=== PATIENT | female | born 1980 | race Caucasian/White ===

== ENCOUNTER 2024-09-29 16:21 | Inpatient (IN) | payer OTHER ==
[~2024-09-29] VITALS: Ht 170.2 cm; Wt 56.7 kg
--- NOTE | 2024-09-29 16:36 | Physician Documentation ---
History of Present Illness ~ Chief Complaint: Vomiting Stated Complaint: VOMITTING Time Seen by MD: 16:28 OK to notify your PCP?: Yes Source: patient, RN/MD, RN notes reviewed, old records Mode of Arrival: EMS Exam Limitations: no limitations HPI 43-year-old female patient from [place] was brought to the emergency room by ambulance from the hotel in [facility] for vomiting and some streaking of blood in the vomitus after consuming large amount of vodka. Patient was shaky and anxious. About 1-1/2 weeks ago the patient has a same episode and extensive workup including CT scan of the abdomen pelvis was done and she was told that it is probably gastritis/esophagitis. Patient also admit that she use cannabis occasionally and the last time she was about a week ago. No known allergies. Medication Reconciliation Allergies: Coded Allergies: No Known Allergies (Unverified , 09/29/24) Past Medical History Other Past Medical History: Unknown Additional Comment Unknown Review of Systems ROS As stated above in the HPI, otherwise all systems are reviewed and negative. Physical Exam Vital Signs: RN Vital Signs have been reviewed: Yes, Heart Rate: 117, Respiratory Rate: 27, BP: 167/100, Pulse Oximetry: 98, Weight: 56.700 Oxygen Flow Rate: 0 Physical Exam Reviewed vital signs and except for tachycardia and slightly elevated blood pressure all within normal range. Const: Patient is not in acute cardiopulmonary distress but shaky. Obviously intoxicated. Does not look toxic. Head: Atraumatic Eyes: Normal Conjunctiva ENT: Normal External Ears, Nose and Mouth. Moist mucous membranes Neck: Full range of motion. No meningismus Resp: Clear to auscultation bilaterally. Normal work of breathing Cardio: Regular rate and rhythm, no murmurs. Skin well perfused, heart rate 112/minute Abd: Soft, epigastric tenderness, non-distended. Normal bowel sounds. No rebound or guarding Skin: No petechiae or rashes. Warm and dry Back: No midline or flank tenderness Ext: No cyanosis, or edema Neuro: Awake and alert Psych: Normal Mood and Affect Progress Results/Orders Reviewed/noted all lab results: Yes Results/Orders Orders - DELMY FINNEGAN MD Electrocardiogram (09/29/24 16:28) Culture Blood (09/29/24 17:54) Page Hospitalist (09/29/24 17:58) Completed Orders - DELMY FINNEGAN MD Cbc/Diff (09/29/24 16:28) Lipase (09/29/24 16:28) Ethanol (09/29/24 16:28) Hcg, Ur Ql (09/29/24 16:28) Type And Screen (09/29/24 16:28) Electrocardiogram (09/29/24 16:28) Drug Screen, Urine (09/29/24 16:28) BMP (09/29/24 16:28) Hs Troponin I W Calculations (09/29/24 16:28) Normal Saline 1000ml (Sodium Chloride 10 (09/29/24 16:30) Diphenhydramine Inj (Benadryl Inj.) (09/29/24 16:30) Metoclopramide Inj (Reglan Inj) (09/29/24 16:30) Lorazepam Inj (Ativan Inj) (09/29/24 16:30) Lidocaine 2% Viscous (Xylocaine 2% Visco (09/29/24 17:10) Mag & Alum Hydrox/Simeth Susp (Maalox Or (09/29/24 17:10) Dicyclomine 10mg/5ml Oral Maryjane. (Dicyclom (09/29/24 17:10) Mag & Alum Hydrox/Simeth Susp (Maalox Or (09/29/24 17:35) Lidocaine 2% Viscous (Xylocaine 2% Visco (09/29/24 17:35) Normal Saline 1000ml (Sodium Chloride 10 (09/29/24 17:55) LA (09/29/24 17:54) Ceftriaxone/S6n-[id number] 1gm (Rocephin 1 (09/29/24 17:55) Mag & Alum Hydrox/Simeth Susp (Maalox Or (09/29/24 18:15) Ua W/Microscopic, Cult If Ind (09/29/24 18:10) CK (09/29/24 17:01) Liver Panel (09/29/24 17:01) MG (09/29/24 17:01) Myoglobin (09/29/24 17:01) Lactic,2hr (09/29/24 20:18) Hgb A1c (09/29/24 17:01) PBNP (09/29/24 17:01) PHOS (09/29/24 17:01) Laboratory Tests Test 09/29/24 17:01 09/29/24 18:10 09/29/24 18:35 09/29/24 21:20 White Blood Count 22.4 H Red Blood Count 4.40 Hemoglobin 14.9 Hematocrit 45.4 H Mean Corpuscular Volume 103.1 H Mean Corpuscular Hemoglobin 33.9 H Mean Corpuscular Hemoglobin Concent 32.8 L Red Cell Distribution Width 15.5 H Platelet Count 708 H Mean Platelet Volume 7.7 Neutrophils (%) (Auto) 89.3 H Lymphocytes (%) (Auto) 6.8 L Monocytes (%) (Auto) 3.1 Eosinophils (%) (Auto) 0 Basophils (%) (Auto) 0.8 Neutrophils # (Auto) 20.0 H Lymphocytes # (Auto) 1.5 Monocytes # (Auto) 0.7 Eosinophils # (Auto) 0.0 Basophils # (Auto) 0.2 CBC Comment Prothrombin Time 9.3 INR International Normalized Ratio 0.9 Activated Partial Thromboplast Time 25 Coagulation Comments Sodium Level 131 L Potassium Level 2.6 *L Chloride Level 81 L Carbon Dioxide Level 8.2 *L Anion Gap 42 H Blood Urea Nitrogen 8 Creatinine 1.16 H Estimated GFR/1.73 m2 51 BUN/Creatinine Ratio 6.9 L Glucose Level 78 Hemoglobin A1c 5.1 Calcium Level 9.0 Phosphorus Level 6.2 H Magnesium Level 1.8 Total Bilirubin 0.5 Direct Bilirubin 0.1 Aspartate Amino Transf (AST/SGOT) 209 H Alanine Aminotransferase (ALT/SGPT) 127 H Alkaline Phosphatase 132 H Total Creatine Kinase 74 Myoglobin 23.0 Troponin I High Sensitivity 5 10 Pro-B-Type Natriuretic Peptide 155 H Total Protein 8.3 H Albumin 3.9 Globulin 4.4 H Albumin/Globulin Ratio 0.9 L Lipase 97 H Chemistry Comments Ethyl Alcohol Level 117 H Urine Specimen Description Cln catch midstream Urine Color Yellow Urine Clarity Clear Urine pH 6.0 Urine Specific Josephine >=1.030 Urine Protein Trace Urine Glucose (UA) Negative Urine Ketones >=80 Urine Occult Blood Negative Urine Nitrite Negative Urine Bilirubin Negative Urine Urobilinogen 0.2 Urine Leukocyte Esterase Negative Urine RBC None seen Urine WBC 0-4 Urine Squamous Epithelial Cells Moderate Urine Bacteria 1+ Urine Culture Indicated Not ind Volume Urine Centrifuged 10 ml Urine HCG, Qualitative Negative Urine Comment Urine Opiates Screen Negative Urine Methadone Screen Negative Urine Fentanyl Screen Negative Urine Barbiturates Screen Negative Urine Phencyclidine Screen Negative Urine Amphetamines Screen Negative Urine Benzodiazepines Screen Negative Urine Cocaine Screen Negative Urine Cannabinoids Screen Positive Drug Screen Comment Lactic Acid Level 6.4 *H 1.1 Troponin I High Sens Percent Delta 100 Troponin I Hi Sens Absolute Change 5 Test 09/29/24 22:14 White Blood Count 15.9 H Red Blood Count 3.67 L Hemoglobin 12.5 Hematocrit 37.5 Mean Corpuscular Volume 102.0 H Mean Corpuscular Hemoglobin 33.9 H Mean Corpuscular Hemoglobin Concent 33.3 Red Cell Distribution Width 15.3 H Platelet Count 503 H Mean Platelet Volume 7.5 Neutrophils (%) (Auto) 85.4 H Lymphocytes (%) (Auto) 8.8 L Monocytes (%) (Auto) 5.3 Eosinophils (%) (Auto) 0 Basophils (%) (Auto) 0.5 Neutrophils # (Auto) 13.6 H Lymphocytes # (Auto) 1.4 Monocytes # (Auto) 0.8 Eosinophils # (Auto) 0.0 Basophils # (Auto) 0.1 CBC Comment Sodium Level 132 L Potassium Level 2.8 *L Chloride Level 89 L Carbon Dioxide Level 12.7 *L Anion Gap 30 H Blood Urea Nitrogen 6 L Creatinine 0.88 Estimated GFR/1.73 m2 70 BUN/Creatinine Ratio 6.8 L Glucose Level 73 Calcium Level 7.0 #L Albumin 2.9 L Chemistry Comments Microbiology Date/Time Source Procedure Growth Status 09/29/24 19:05 Blood Iv Draw Blood Culture - Preliminary NO GROWTH AFTER 4 DAYS Resulted Re-Evaluation Re-Evaluation : Re-Evaluation: Improved Progress This patient was signed out to me at 6:00 p.m. to admit the patient to the hospitalist service. Patient is tachycardic with critical laboratory findings. Patient has received under 3 L of fluids in and outs are 3 L in 200 cc out. She is complaining of abdominal pain I gave her Dilaudid. She has pancreatitis slightly elevated levels of lipase. Her electrolytes are severely abnormal her QTC is over 500 and prolonged. He has low potassium low magnesium. She is an alcoholic has been vomiting and has alcoholic ketoacidosis. CAT scan has been ordered fluids have been provided electrolytes are emergently given. She was started on antibiotics because her white count is 22. The hospitalist was then consulted she is not in ICU player at this time but does have some critical findings. student affairs dean interpretation shows sinus tachycardia heart rate 120s, abnormal, my interpretation. Pulse oximetry monitor interpretation shows normal oxygenation at 98% room air, normal, my interpretation. EKG/XRAY/CT/US/VASC/MRI EKG : Intepreting Monitor?: Yes Additional Comment [facility] Test Date: 2024-09-29 Test Time: 16:36:22 Pat Name: BALDO MORA Department: [facility]- Patient ID: [facility]-[id number] Room: Gender: F Forensic Document Examiner: : 1980 Requested By: DELMY FINNEGAN Order Number: [id number] Reading MD: Dr. Mario Bhatia Measurements Intervals [place] Rate: 119 P: 78 MT: 123 QRS: -16 QRSD: 86 T: -3 QT: 356 QTc: 501 Interpretive Statements Sinus tachycardia Borderline left axis deviation Anterior infarct, old Nonspecific T abnormalities, inferior leads Electronically Signed On 09-29-2024 18:22:[address] Mario Bhatia Please click the below link to view image of tracing. EKG Date and Time:09/29/24 1636 Electronically Signed by: MARIO BHATIA MD Date and Time: 09/29/24 182 Chest X-Ray : Additional Comments Procedure: DI CHEST,SINGLE VIEW 09/29/2024 08:25 PM Indication: CHEST PAIN Comparison: None TECHNIQUE: DI CHEST,SINGLE VIEW FINDINGS/IMPRESSION: The lungs are clear. The cardiomediastinal silhouette is unremarkable. No pleural effusion or pneumothorax. No acute osseous abnormality. Electronically Signed by:RAN MA MD Date & Time: 09/29/242057 Dictated by: RAN MA MD Dictation date and time: 09/29/242057 CT : Impression Exam: CT CT ABDOMEN PELVIS W/ IV CONTRAST History: ABD PAIN Comparison Study: None TECHNIQUE: A digital marble coper image was obtained. During the uneventful, intravenous administration of contrast material, multislice data acquisition was obtained through the abdomen and pelvis. The data set was subsequently reconstructed into multiplanar reformats. RADIATION DOSE: DLP 496.25 mGy.cm; CTDI vol 9.86 mGy. Findings: Liver: Hepatomegaly and hepatic steatosis. Spleen: Unremarkable. Pancreas: Unremarkable. Gallbladder: Unremarkable. Adrenals: Unremarkable Kidneys: Unremarkable. Pelvic Viscera: Status post hysterectomy. Vasculature: Unremarkable. Retroperitoneum: Unremarkable. Bowel: No bowel obstruction. There is submucosal fat deposition most pronounced within the ascending colon suggesting chronic inflammation. No CT evidence of appendicitis. Fluid filled regions of small bowel with wall thickening and hyperemia. Circumferential wall thickening of the distal esophagus. Musculoskeletal: Age-indeterminate mild compression of the superior endplate of L1. No osseous retropulsion. Soft tissues: Unremarkable. Lungs: Unremarkable. Impression: 1. Nonspecific fluid-filled regions of small bowel with wall thickening and hyperemia, possibly referable to an enteritis in the appropriate clinical setting. 2. Hepatomegaly and hepatic steatosis. 3. Wall thickening of the distal esophagus, further clinical correlation is suggested and nonemergent endoscopy may be beneficial if clinically indicated. 4. Additional findings as detailed. Electronically Signed by:RAN MA MD Date & Time: 09/29/242132 Medical Decision Making Additional info obtained from: old records Findings During the physical examination, the findings suggestive of acute life- threatening condition such as JVD, tracheal deviation, acidotic breathing, noisy stridorous breath sounds, pulses paradoxus, muffled heart sounds, unequal breath sounds, abdominal rigidity and rebound tenderness, focal neurological deficits, cool clammy skin, severe hypotension, severe tachycardia or bradycardia are absent. Patient is obviously anxious and intoxicated. Hemodynamics are stable. CBC showed WBC 22.4 H and H14.9 and 45.4 and platelets 708. I think leukocytosis is probably from repeated vomiting. However we will rechecked. CMP came back and it showed metabolic acidosis and hypokalemia .ETOH is 117. Patient will be admitted for hydration and electrolytes replacement. Differential Dx:Considerations: Intoxication - ETOH, Intoxication - other drug, Sub. Abuse -continuous, Sub. Abuse-intermittent, Dehydration, Pancreatitis, Other Departure Disposition: ADMITTED INPATIENT Admitted to Inpatient Unit: to hospitalist Admission Level of Care: PCU with Tele Impression: Primary Impression: Acute metabolic acidosis Additional Impressions: Alcoholic ketoacidosis Pancreatitis Qualified Codes: K85.20 - Alcohol induced acute pancreatitis without necrosis or infection Hypokalemia Condition: Critical Referrals: NO PRIMARY CARE PROVIDER (PCP) Education Educated: Patient Educated regarding: diagnosis Critical Care Note Total Time (mins): 30 Critical Care Note The very real possibility of a deterioration of this patient's condition required the highest level of my preparedness for sudden, emergent intervention. I provided critical care services, which included medication orders, frequent reevaluations of the patient's condition and response to treatment, ordering and reviewing test results, and discussing the case with various consultants. Excludes time spent performing separately billable procedures. The critical care time associated with the care of the patient was. 30 minutes Additional Comment Additional Comment Patient was seen by the morning physician. Patient came in with alcoholic ketoacidosis. Patient has a leukocytosis electrolyte abnormalities was given potassium as well as magnesium supplementation. Borderline pancreatitis as well patient was admitted to the hospitalist service for further workup and care. Signature Scribe Signature: None Scribed for Mario Bhatia MD by Wicho Edouard . 09/29/24 22:49 (Progress) Attestation: The note accurately reflects work and decisions made by me.Mario Bhatia MD 09/29 20:17 My dictation DELMY FINNEGAN MD Sep 29, 2024 16:36 MARIO BHATIA MD Sep 29, 2024 19:52 WICHO OROZCO Sep 29, 2024 22:49
--- NOTE | 2024-09-29 16:38 | ELECTROCARDIOGRAPH REPORT ---
[facility] Test Date: 2024-09-29 Test Time: 16:36:22 Pat Name: BALDO MORA Department: [facility]- Patient ID: [facility]-[id number] Room: Gender: F Tank Riveter: : 1980 Requested By: DELMY FINNEGAN Order Number: [id number] Reading MD: Dr. Mario Bhatia Measurements Intervals [place] Rate: 119 P: 78 [place]: 123 QRS: -16 QRSD: 86 T: -3 QT: 356 QTc: 501 Interpretive Statements Sinus tachycardia Borderline left axis deviation Anterior infarct, old Nonspecific T abnormalities, inferior leads Electronically Signed On 09-29-2024 18:22:[address] Mario Bhatia Please click the below link to view image of tracing.
[2024-09-29] MEDS: normal saline 1000ML IV soln IV ONE ×2 (17:00→18:35)
[2024-09-29] MEDS: LORazepam 2 mg/ml vial IV ONE ×2 (17:00→21:35)
[2024-09-29] MEDS: diphenhydrAMINE 50 mg/ml inj IV ONE (17:01)
[2024-09-29] MEDS: metoclopramide 5 mg/ml inj IV ONE (17:05)
[2024-09-29] MEDS: dicyclomine 10mg/5ml oral solution 5ml UD bottle PO ONE (17:10)
[2024-09-29 17:14] LABS: BASOPHILS # (AUTO) 0.2 X10'3 (0-0.2); BASOPHILS % (AUTO) 0.8 % (0-1); EOSINOPHILS % (AUTO) 0 % (0-6); HEMATOCRIT 45.4 % (35.0-45.0); HEMOGLOBIN 14.9 g/dl (12.0-16.0); LYMPHOCYTES # (AUTO) 1.5 X10'3 (1.1-4.8); LYMPHOCYTES % (AUTO) 6.8 % (21-51); MEAN CORPUSCULAR HEMOGLOBIN 33.9 PG (27.0-31.0); MEAN CORPUSCULAR HGB CONC 32.8 g/dL (33.0-36.5); MEAN CORPUSCULAR VOLUME 103.1 FL (78-98); MEAN PLATELET VOLUME 7.7 FL (7.4-10.4); MONOCYTES # (AUTO) 0.7 X10'3 (0-0.9); MONOCYTES % (AUTO) 3.1 % (2-12); NEUTROPHILS % (AUTO) 89.3 % (42-75); PLATELET COUNT 708 X10'3 (140-440); RED CELL DISTRIBUTION WIDTH 15.5 % (11.5-14.5); WHITE BLOOD COUNT 22.4 X10'3 (4.5-11.0)
[2024-09-29 17:27] LABS: ALBUMIN 3.9 G/DL (3.4-5.0); ANION GAP 42 (8-16); BLOOD UREA NITROGEN 8 MG/DL (7-18); BUN/CREATININE RATIO 6.9 (10.0-20.0); CHLORIDE 81 MMOL/L (99-107); CREATININE 1.16 MG/DL (0.40-0.90); ETHANOL 117 MG/DL (<10); GLUCOSE 78 MG/DL (70-104); LIPASE 97 U/L (16-77); SODIUM 131 MMOL/L (135-145); eCRCL 55 ML/MIN; eGFR 51 ML/MIN
[2024-09-29] MEDS: mag hydrox/Alum hydrox/simeth 30ml oral suspension PO ONE ×2 (17:33→17:44)
[2024-09-29] MEDS: LIDOcaine 2% Viscous 15ml cup TP ONE ×2 (17:33→17:44)
[2024-09-29 17:52] LABS: POTASSIUM 2.6 MMOL/L (3.5-5.1); TOTAL CARBON DIOXIDE 8.2 MMOL/L (24-32)
[2024-09-29] MEDS ORDERED: diphenhydrAMINE 25 MG/10 ML UD oral solution PO ONE (17:55)
[2024-09-29] MEDS ORDERED: mag & alum hydrox/simeth susp 40 ML, diphenhydrAMINE oral solution 100 MG, LIDOcaine 2%... PO ONE (18:10)
[2024-09-29] MEDS: CefTRIAXone/D5W-Rocephin 1gm 50 ML IV ONE (18:35)
[2024-09-29 18:56] LABS: URINE HCG NEGATIVE (NEG)
[2024-09-29] MEDS: mag & alum hydrox/simeth susp 40 ML, diphenhydrAMINE oral solution 100 MG, LIDOcaine 2%... PO PRN (19:01)
[2024-09-29 19:02] LABS: BILIRUBIN,URINE NEGATIVE (Neg); CLARITY,URINE CLEAR (Clear); COLOR,URINE YELLOW (Yellow); GLUCOSE, URINE NEGATIVE (Neg); KETONES,URINE >=80 mg/dl (Neg); LEUKOCYTE ESTERASE ,URINE NEGATIVE (Neg); NITRITES, URINE NEGATIVE (Neg); OCCULT BLOOD,URINE NEGATIVE (Neg); PROTEIN,URINE TRACE mg/dl (Neg); UROBILINOGEN,URINE 0.2 E.U/dL (0.2-1.0)
[2024-09-29 19:03] LABS: UA COLLECTION TYPE CLN CATCH MIDSTREAM
[2024-09-29 19:12] LABS: BACTERIA,URINE 1+ /HPF (Neg); RBC,URINE NONE SEEN /HPF (0-2); SQUAMOUS EPITHELIAL CELL,UR MODERATE /LPF (FEW); WBC,URINE 0-4 /HPF (0-4)
[2024-09-29 19:19] LABS: URINE AMPHETAMINE SCREEN NEGATIVE (Neg); URINE BARBITUATE SCREEN NEGATIVE (Neg); URINE BENZODIAZEPINES SCREEN NEGATIVE (Neg); URINE CANNABINOID SCREEN POSITIVE (Neg); URINE COCAINE SCREEN NEGATIVE (Neg); URINE METHADONE SCREEN NEGATIVE (Neg); URINE OPIATE SCREEN NEGATIVE (Neg); URINE PHENCYCLIDINE SCREEN NEGATIVE (Neg)
[2024-09-29] MEDS: HYDROmorphone 1 mg/ml syringe IV ONE (19:53)
[2024-09-29 20:06] LABS: ALANINE AMINOTRANSFERASE 127 U/L (12-78); ALBUMIN/GLOBULIN RATIO 0.9 (1.1-1.5); ALKALINE PHOSPHATASE 132 IU/L (46-116); ASPARTATE AMINO TRANSFERASE 209 U/L (10-37); BILIRUBIN,DIRECT 0.1 MG/DL (0-0.3); BILIRUBIN,TOTAL 0.5 MG/DL (0.1-1.0); CREATINE KINASE 74 U/L (26-192); MAGNESIUM 1.8 MG/DL (1.5-2.4); TOTAL PROTEIN 8.3 G/DL (6.4-8.2)
[2024-09-29] MEDS: magnesium sulf-water 2g/50mL 50 ML IV ONE (20:09)
[2024-09-29] MEDS: potassium CL 10mEq/100ml bag 100 ML IV ONE (20:10)
[2024-09-29] MEDS ORDERED: iohexol 300mg/ml 100ml inj. ONE (20:11)
[2024-09-29] MEDS: potassium Cl 20 mEq SR tablet PO ONE (20:31)
[2024-09-29] MEDS: ondansetron/PF 4mg/2ml inj IV ONE (20:48)
[2024-09-29] MEDS: HYDROmorphone inj. 0.5 MG/0.5 ML DISP.SYRIN IV ONE (20:48)
[2024-09-29 20:58] LABS: APTT 25 SECONDS (22-32); PROTHROMBIN TIME 9.3 SECONDS (9.0-12.0)
[2024-09-29 20:59] LABS: INR 0.9 INR
--- NOTE | 2024-09-29 21:01 | RADIOLOGY REPORT ---
Procedure: DI CHEST,SINGLE VIEW 09/29/2024 08:25 PM Indication: CHEST PAIN Comparison: None TECHNIQUE: DI CHEST,SINGLE VIEW FINDINGS/IMPRESSION: The lungs are clear. The cardiomediastinal silhouette is unremarkable. No pleural effusion or pneumo thorax. No acute osseous abnormality.
[2024-09-29] MEDS: piperacillin/tazo 3.375gm/50ml 50 ML IV ONE (21:33)
--- NOTE | 2024-09-29 21:36 | RADIOLOGY REPORT ---
Exam: CT CT ABDOMEN PELVIS W/ IV CONTRAST History: ABD PAIN Comparison Study: None TECHNIQUE: A digital transmission supervisor image was obtained. During the uneventful, intravenous administration of c ontrast material, multislice data acquisition was obtained through the abdomen and pelvis. The data s et was subsequently reconstructed into multiplanar reformats. RADIATION DOSE: DLP 496.25 mGy.cm; CTDI vol 9.86 mGy. Findings: Liver: Hepatomegaly and hepatic steatosis. Spleen: Unremarkable. Pancreas: Unremarkable. Gallbladder: Unremarkable. Adrenals: Unremarkable Kidneys: Unremarkable. Pelvic Viscera: Status post hysterectomy. Vasculature: Unremarkable. Retroperitoneum: Unremarkable. Bowel: No bowel obstruction. There is submucosal fat deposition most pronounced within the ascending colon suggesting chronic inflammation. No CT evidence of appendicitis. Fluid filled regions of small bowel with wall thickening and hyperemia. Circumferential wall thickening of the distal esophagus. Musculoskeletal: Age-indeterminate mild compression of the superior endplate of L1. No osseous retrop ulsion. Soft tissues: Unremarkable. Lungs: Unremarkable. Impression: 1. Nonspecific fluid-filled regions of small bowel with wall thickening and hyperemia, possibly refer able to an enteritis in the appropriate clinical setting. 2. Hepatomegaly and hepatic steatosis. 3. Wall thickening of the distal esophagus, further clinical correlation is suggested and nonemergent endoscopy may be beneficial if clinically indicated. 4. Additional findings as detailed.
[2024-09-29] MEDS: dextrose 5%-1/2 normal saline 1,000 ML IV ONE (22:10)
[2024-09-29] MEDS: nicotine 21mg patch - 24 hr TD ONE (22:16)
[2024-09-29 22:43] LABS: BASOPHILS # (AUTO) 0.1 X10'3 (0-0.2); BASOPHILS % (AUTO) 0.5 % (0-1); EOSINOPHILS % (AUTO) 0 % (0-6); HEMATOCRIT 37.5 % (35.0-45.0); HEMOGLOBIN 12.5 g/dl (12.0-16.0); LYMPHOCYTES # (AUTO) 1.4 X10'3 (1.1-4.8); LYMPHOCYTES % (AUTO) 8.8 % (21-51); MEAN CORPUSCULAR HEMOGLOBIN 33.9 PG (27.0-31.0); MEAN CORPUSCULAR HGB CONC 33.3 g/dL (33.0-36.5); MEAN PLATELET VOLUME 7.5 FL (7.4-10.4); MONOCYTES # (AUTO) 0.8 X10'3 (0-0.9); MONOCYTES % (AUTO) 5.3 % (2-12); NEUTROPHILS # (AUTO) 13.6 X10'3 (1.8-7.7); NEUTROPHILS % (AUTO) 85.4 % (42-75); PLATELET COUNT 503 X10'3 (140-440); RED BLOOD COUNT 3.67 X10'6 (4.20-5.60); RED CELL DISTRIBUTION WIDTH 15.3 % (11.5-14.5); WHITE BLOOD COUNT 15.9 X10'3 (4.5-11.0)
[2024-09-29 22:55] LABS: ALBUMIN 2.9 G/DL (3.4-5.0); ANION GAP 30 (8-16); BLOOD UREA NITROGEN 6 MG/DL (7-18); BUN/CREATININE RATIO 6.8 (10.0-20.0); CHLORIDE 89 MMOL/L (99-107); CREATININE 0.88 MG/DL (0.40-0.90); GLUCOSE 73 MG/DL (70-104); SODIUM 132 MMOL/L (135-145); eCRCL 73 ML/MIN; eGFR 70 ML/MIN
[2024-09-29 23:05] LABS: POTASSIUM 2.8 MMOL/L (3.5-5.1)
[2024-09-29] MEDS ORDERED: magnesium sulf-water 2g/50mL 50 ML IV PRN (23:05)
[2024-09-29] MEDS ORDERED: potassium Cl 20 mEq SR tablet PO PRN ×2 (23:05)
[2024-09-29] MEDS ORDERED: HYDROmorphone/PF 0.2 MG/ML SYRINGE IV PRN (23:05)
[2024-09-29] MEDS ORDERED: magnesium hydroxide 30ml (MOM) UD suspension PO PRN (23:05)
[2024-09-29] MEDS ORDERED: magnesium Cl slow-release 64mg tablet PO PRN (23:05)
[2024-09-29] MEDS ORDERED: mag hydrox/Alum hydrox/simeth 30ml oral suspension PO PRN (23:05)
[2024-09-29] MEDS ORDERED: acetaminophen 325mg tablet PO PRN ×2 (23:05)
[2024-09-29] MEDS ORDERED: magnesium sulf-water 4G/100mL 100 ML IV PRN (23:05)
[2024-09-29 23:06] LABS: TOTAL CARBON DIOXIDE 12.7 MMOL/L (24-32)
[2024-09-29] MEDS ORDERED: haloperidol 5mg tablet PO PRN (23:15)
[2024-09-29] MEDS ORDERED: haloperidol lactate 5mg/ml inj IM PRN (23:15)
--- NOTE | 2024-09-29 23:21 | HISTORY AND PHYSICAL-Residence ---
History & Physical Providers to CC Resident Creating Document: KENDAL HERNANDEZ RES ~ History of Present Illness Reason for Admit\Complaint: INTRACTABLE ABDOMINAL PAIN AND VOMITING History of Present Illness 43-year-old female patient from [place] with chronic alcohol use was brought to the emergency room by ambulance from the hotel in [facility] for vomiting and abdominal pain.. Endorses intractable vomiting for more than 40 episodes from morning 40 a.m. after drinking a one bottle of vodka, associated with tr blood. Endorses abdominal pain from morning, sharp, severe, rated 10/10, more over the epigastric region then other regions of abdomen, rated 10/10, radiating to back. She endorses shaky and anxious. About 1-1/2 weeks ago the patient has a same episode and extensive workup including CT scan of the abdomen pelvis was done and she was told that it is probably gastritis/esophagitis. Patient also admit that she use cannabis occasionally and the last time she was about a week ago. She endorses melena for the past 2-3 days. She has been drinking the alcohol for the past quite a week. She denied chest pain, shortness of breath, palpitations, decreased urine output, constipation, diarrhea, swelling of legs, Discussed code status with the patient that patient wants to be in full code Allergies: Coded Allergies: No Known Allergies (Unverified , 09/29/24) Past Medical History Past Medical History Chronic alcohol use disorder Past Surgical History Surgical History Comment Hysterectomy Past Social History Smoking: Non-Smoker Alcohol Use: Heavy Drug Use: None ROS All Other Systems: Reviewed and Negative ROS Reviewed in full and negative except for positive pertinent as in HPI Exam Vitals: Vital Signs Date Time Temp Pulse Resp B/P (MAP) Pulse Ox O2 Delivery O2 Flow Rate FiO2 09/29/24 22:41 95 20 137/80 (99) 96 09/29/24 21:40 98.8 09/29/24 18:41 0 General: General: Alert, awake. In mild confusion & intoxicated. Patient is not in acute cardiopulmonary distress but shaky. Obviously intoxicated. Head: Atraumatic Eyes: Normal Conjunctiva ENT: Normal External Ears, Nose and Mouth. Moist mucous membranes Neck: Full range of motion. No meningismus Resp: Clear to auscultation bilaterally. Normal work of breathing. Bilateral basal crepitations are present. Cardio: Regular rate and rhythm, no murmurs. Skin well perfused, heart rate 112/minute Abd: Soft, distended, tenderness is more in epigastric region than other areas . Rebound tenderness in epigastric, left hypochondrium. Normal bowel sounds. No guarding or rigidity Skin: No petechiae or rashes. Warm and dry Back: No midline or flank tenderness Ext: No cyanosis, or edema Neuro: Awake and alert Psych: Normal Mood and Affect Diagnostic Data Last Recorded Lab Results: 09/29/24 2214 09/29/24 1701 Diagnostic Data: Laboratory Tests Test 09/29/24 17:01 Prothrombin Time 9.3 SECONDS (9.0-12.0) INR International Normalized Ratio 0.9 INR Activated Partial Thromboplast Time 25 SECONDS (22-32) Coagulation Comments Advance Care Planning Advanced Care planning: Add on additional 30 min Additional Plan 1)Acute metabolic Encephalopathy Secondary to Acute Alcohol Intoxication 2)Possible Wernicke's encephalopathy 3)Alcohol withdrawal-delirium tremens 4)Upper GI bleed secondary to possible Lu-Dorsey tear 5)Pain abdomen likely secondary to Acute gastritis versus Acute mesenteric ischemia versus ischemic colitis versus Acute pancreatitis 6) intractable 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 Ordered CT angiography to rule out acute mesenteric ischemia versus ischemic colitis Received nicotine patch, 2 L of normal saline, Benadryl, Reglan, Dilaudid, ondansetron, lorazepam, Zosyn, ceftriaxone, DNS, potassium and magnesium replacement in the ER. On Zosyn 4.5 g IV q.8h,: Lactated Ringer's 100 mL/hour ABG is not looking scary and we discontinued bicarb drip which was initially started for very low pCO2 . CO2 is improved Ordered stool occult blood-significant drop of hemoglobin by 2.5 in less than it 12 hours duration Consult clerk secretary in a.m. Received IV pantoprazole& currently on pantoprazole drip On moderate detox protocol with thiamine, folic acid, Ativan, Haldol p.r.n. On LR at a rate of 100 mL/hour MARZENA likely secondary to renal tubular stasis High anion gap metabolic acidosis likely secondary to alcoholic ketoacidosis versus acute mesenteric ischemia Hyponatremia Hypokalemia Serum creatinine is improved to 0.88 from 1.16 Potassium is improving to 2.9 from 2.3 Anion gap is reduced to 18 from 42 AST/ALT ratio is less than one On LR are the rate of 100 mL/hour Continue to monitor BNP q.6h Disposition: Initially we were paged by ER for admission around 7:00 p.m. but we thought the patient needs to be evaluated and managed for possible acute mesenteric ischemia/SMA mesenteric thrombosis/ischemic colitis and severe metabolic acidosis in ER and may eventually needs to go to the ICU. We discussed with Dr. Bhatia about the management and need for ICU admit but he did not think that patient belongs to the ICU. and he kindly agrees to do further evaluation in ER and evaluated with chest x-ray, IV contrast CT of abdomen and pelvis and treated with magnesium sulfate, potassium replacement, dextrose sodium chloride, Dilaudid, Zosyn, Ativan, Zofran meanwhile we contacted night mill beam fitter, Andrei and he informed us that patient should not go to PCU until cleared for acute mesenteric ischemia / ischemic colitis SOB did not admitted the patient. Patient was under care of Dr. Bhatia until 2300, 09/29/2024. Patient is improving with a lactic acid and CBC, liver function tests when in ER after further management and then we thought we can admit to the PCU after re-evaluation. We got a push back from CAT scan regarding CT Angiography contrast of abdomen and pelvis because patient received IV contrast CT on today but after discussing with Dr. Eddie mcneill per mill beam fitter Thao, we placed the the orders for CT angiography again Date of Service: Sep 29, 2024 Billing Provider: GENEVA BURROWS Jr., DO [facility] Sep 29, 2024 23:21
[2024-09-29] MEDS: PERFLUTREN PROTEIN-A MICROSPHR (Optison) 0.22 MG/ML 3ML VIAL IV ONE (23:31)
[2024-09-29] MEDS: sodium bicarbonate 1meq/ml inj 150 ML in dextrose 5%-water 1,000 ML IV SCH (23:52)
[2024-09-29 23:55] LABS: HEMOGLOBIN A1C 5.1 % (4.5-6.2)
[2024-09-29] MEDS: potassium Cl 40MEQ/1/2NS 520ml 520 ML IV PRN (23:58)
[2024-09-29] MEDS: potassium Cl 40MEQ/1/2NS 520ml 520 ML IV ONE (23:59)
[2024-09-30] MEDS: normal saline 1000ml 1,000 ML IV SCH
[2024-09-30 00:03] LABS: PHOSPHORUS 6.2 MG/DL (2.3-4.5); PRO BRAIN NATRIURETIC PEPTIDE 155 PG/ML (0-125)
[2024-09-30 00:26] LABS: ABG BASE EXCESS -9.1 mmol/L (-2.0-3.0); ABG OXYGEN SATURATION 97.5 % (94.0-98.0); ABG PCO2 (T) 20.2 mmHg (32.0-45.0); ABG PH (T) 7.425 (7.350-7.450); ABG PO2 (T) 102.7 mmHg (83.0-108.0); ALLEN'S TEST POSITIVE; FCOHb 0.3 % (0.5-1.5); FHHb 2.5 % (0.0-5.0); FMetHb 0.1 % (0.0-1.5); FO2Hb 97.1 % (94.0-98.0); MODE ROOM AIR; TOTAL HEMOGLOBIN 13.3 G/dl (12.0-16.0)
[2024-09-30] MEDS: pantoprazole 40 MG vial IV STA (00:38)
[2024-09-30] MEDS: ondansetron/PF 4mg/2ml inj IV PRN (00:40)
[2024-09-30] MEDS: thiamine 100mg/ml 2ml inj. IV STA (00:46)
[2024-09-30] MEDS: LORazepam 2 mg/ml vial IV PRN (00:46)
[2024-09-30] MEDS: pantoprazole 40MG/NS 100ML BAG 100 ML IV SCH (01:00)
[2024-09-30] MEDS: folic acid 1mg/0.2ml inj IV STA (01:41)
[2024-09-30] MEDS: folic acid 1mg/0.2ml inj IV ONE (01:43)
[2024-09-30] MEDS: pantoprazole 40MG/NS 100ML BAG 100 ML IV ONE (01:43)
[2024-09-30] MEDS: HYDROmorphone inj. 0.5 MG/0.5 ML DISP.SYRIN IV PRN (01:59)
[2024-09-30] MEDS: ringers solution, lacted 1,000 ML IV SCH (02:54)
[2024-09-30 03:05] LABS: BASOPHILS # (AUTO) 0.1 X10'3 (0-0.2); BASOPHILS % (AUTO) 0.8 % (0-1); EOSINOPHILS # (AUTO) 0.1 X10'3 (0-0.9); HEMATOCRIT 35.6 % (35.0-45.0); LYMPHOCYTES # (AUTO) 1.4 X10'3 (1.1-4.8); LYMPHOCYTES % (AUTO) 13.2 % (21-51); MEAN CORPUSCULAR HEMOGLOBIN 33.9 PG (27.0-31.0); MEAN CORPUSCULAR HGB CONC 33.6 g/dL (33.0-36.5); MEAN PLATELET VOLUME 7.3 FL (7.4-10.4); MONOCYTES # (AUTO) 0.6 X10'3 (0-0.9); NEUTROPHILS # (AUTO) 8.1 X10'3 (1.8-7.7); PLATELET COUNT 453 X10'3 (140-440); RED BLOOD COUNT 3.53 X10'6 (4.20-5.60); RED CELL DISTRIBUTION WIDTH 15.4 % (11.5-14.5); WHITE BLOOD COUNT 10.3 X10'3 (4.5-11.0)
[2024-09-30 03:14] LABS: PROTHROMBIN TIME 9.8 SECONDS (9.0-12.0)
[2024-09-30 03:20] LABS: ALANINE AMINOTRANSFERASE 81 U/L (12-78); ALBUMIN 2.7 G/DL (3.4-5.0); ALBUMIN/GLOBULIN RATIO 0.8 (1.1-1.5); ALKALINE PHOSPHATASE 89 IU/L (46-116); AMYLASE 14 U/L (25-115); ANION GAP 18 (8-16); ASPARTATE AMINO TRANSFERASE 86 U/L (10-37); BLOOD UREA NITROGEN 5 MG/DL (7-18); BUN/CREATININE RATIO 6.6 (10.0-20.0); CALCIUM 7.2 MG/DL (8.5-10.1); CHLORIDE 94 MMOL/L (99-107); CHOL/HDL RATIO 1.9 (0.00-4.99); CHOLESTEROL 191 MG/DL (0-200); CREATININE 0.76 MG/DL (0.40-0.90); GLUCOSE 111 MG/DL (70-104); HDL CHOLESTEROL 101 MG/DL (35-60); LDL CHOLESTEROL 47 MG/DL (50-100); LIPASE 123 U/L (16-77); MAGNESIUM 2.1 MG/DL (1.5-2.4); SODIUM 130 MMOL/L (135-145); TOTAL CARBON DIOXIDE 18.5 MMOL/L (24-32); TRIGLYCERIDES 194 MG/DL (20-135); eCRCL 85 ML/MIN; eGFR 83 ML/MIN
[2024-09-30 03:33] LABS: POTASSIUM 2.9 MMOL/L (3.5-5.1)
[2024-09-30 03:34] LABS: BILIRUBIN,URINE NEGATIVE (Neg); CLARITY,URINE CLEAR (Clear); COLOR,URINE YELLOW (Yellow); GLUCOSE, URINE NEGATIVE (Neg); KETONES,URINE >=80 mg/dl (Neg); LEUKOCYTE ESTERASE ,URINE NEGATIVE (Neg); NITRITES, URINE NEGATIVE (Neg); OCCULT BLOOD,URINE NEGATIVE (Neg); PROTEIN,URINE TRACE mg/dl (Neg); UROBILINOGEN,URINE 0.2 E.U/dL (0.2-1.0)
[2024-09-30 03:50] LABS: UA COLLECTION TYPE NON-SPECIFIED
[2024-09-30 04:05] LABS: WBC,URINE 0-4 /HPF (0-4)
[2024-09-30 04:06] LABS: BACTERIA,URINE NONE SEEN /HPF (Neg); RBC,URINE NONE SEEN /HPF (0-2); SQUAMOUS EPITHELIAL CELL,UR FEW /LPF (FEW)
[2024-09-30] MEDS: morphine 4 MG/ML inj SYRINge IV PRN (04:11)
[2024-09-30 04:40] VITALS: BP 141/89; PULSE 91; RESP 17; TEMP 97.8; O2SAT 100
[2024-09-30] MEDS ORDERED: iohexol 350MG/ML 100ml bottle IV ONE (05:21)
[2024-09-30 06:00] VITALS: BP 136/85; PULSE 103; RESP 15; TEMP 97.1; O2SAT 100
[2024-09-30 06:29] VITALS: RESP 17; O2SAT 100
--- NOTE | 2024-09-30 06:40 | RADIOLOGY REPORT ---
Procedure: CT CTA ABDOMEN PELVIS HISTORY: ACUTE MESENTERIC ISCHEMIA Comparison Study: CT CT ABDOMEN PELVIS W/ IV CONTRAST on DOS: 09/29/24 Exam Date:09/30/2024 05:33 AM TECHNIQUE: CTA scanner volumetric data acquisition of abdomen and pelvis was obtained following intravenous admi nistration of intravenous contrast without any reported adverse effects. Axial images were reconstru cted and additional sagittal and coronal images were reformatted. arterial phase imaging were perfor med. Postprocessing was also performed on a Separate workstation. 3D images were performed on a dedicated workstation and reviewed for reporting. Radiation Dose : CT Dose: CTDI volume is 10.0 mGy. Dose-length product is 45 mGy*cm FINDINGS: Vascular: Aortic measurements: aortic hiatus 19 mm, suprarenal abdominal aorta 18 mm and infrarenal aorta 14 m m. There is normal caliber of abdominal aorta without evidence of aortic dissection or aneurysm. Small c aliber inferior mesenteric artery noted with otherwise normal vascularity and enhancement of branchin g vessels serving the segments of bowel and question. The mesenteric, and bilateral renal, iliac and femoral arteries are widely patent without any focal stenosis or aneurysm. Lung Bases: No acute or significant lung base finding. Mild bibasilar atelectasis. Normal heart size. No pleural or pericardial effusion. Liver: The liver is enlarged and there is diffuse hepatic steatosis. No focal lesions. Normal hepati c vascular enhancement. Gallbladder and Biliary Tree: Unremarkable Spleen: Unremarkable Pancreas: The pancreas is normal in appearance without focal lesions or abnormal enhancement. Adrenal Glands: Unremarkable Kidneys: Kidneys demonstrate normal symmetric enhancement without focal lesions, calculi or hydroneph rosis. Bladder: Unremarkable Bowel: Moderate increased wall thickening and circumferential intramural edema of the distal esophagu s and gastroesophageal junction. The stomach is grossly normal in appearance. Mildly dilated fluid an d gas-filled segments of small bowel redemonstrated with increased wall thickening and intramural nathalia ma of right lower quadrant segments of small bowel, likely related to enteritis. Normal appendix is visualized in the right lower quadrant without findings of appendicitis. Ascites: Absent Lymphadenopathy: No mesenteric, retroperitoneal or periportal lymphadenopathy. Abdominal Wall and Mesentery: Unremarkable. Vasculature: The visualized abdominal aorta is normal in size and caliber. Abdominal and pelvic vess els demonstrate normal enhancement. Pelvic Organs: Unremarkable Musculoskeletal: No aggressive focal bony lesions, acute fractures or dislocation. IMPRESSION: 1. No evidence of acute aneurysm, dissection, or intramural hematoma. 2. Small caliber inferior mesenteric artery with otherwise normal vascularity and enhancement of bran sarah vessel serving the mildly dilated segments of small bowel exhibiting wall thickening and hypere karla. No evidence of ischemic change. These findings are most consistent with enteritis. 3. Hepatomegaly and hepatic steatosis. 4. Nonspecific wall thickening and intramural edema of the distal esophagus.
[2024-09-30] MEDS: docusate sod 100mg capsule PO SCH (07:16)
[2024-09-30] MEDS: multivitamins, therapeutics tablet PO SCH (07:16)
[2024-09-30] MEDS: thiamine 100mg/ml 2ml inj. IV SCH (07:16)
[2024-09-30 08:00] VITALS: RESP 16; O2SAT 100
[2024-09-30] MEDS ORDERED: K and/or MAG REPLACEMENT MC SCH (08:00)
[2024-09-30] MEDS: folic acid 1mg/0.2ml inj IV SCH (08:00)
[2024-09-30 09:22] VITALS: RESP 16
[2024-09-30] MEDS: piperacillin/tazo 4.5gm/100ml 100 ML IV SCH (09:32)
[2024-09-30 10:08] LABS: RED BLOOD COUNT 3.5 X10'6 (4.20-5.60); RETICULOCYTE % (AUTO) 0.9 % (0.5-1.5)
[2024-09-30 10:15] LABS: ALBUMIN 2.7 G/DL (3.4-5.0); ANION GAP 12 (8-16); BLOOD UREA NITROGEN 4 MG/DL (7-18); BUN/CREATININE RATIO 5.1 (10.0-20.0); CALCIUM 7.8 MG/DL (8.5-10.1); CHLORIDE 96 MMOL/L (99-107); CREATININE 0.79 MG/DL (0.40-0.90); GLUCOSE 101 MG/DL (70-104); POTASSIUM 3.1 MMOL/L (3.5-5.1); SODIUM 133 MMOL/L (135-145); TOTAL CARBON DIOXIDE 24.6 MMOL/L (24-32); eCRCL 81 ML/MIN; eGFR 79 ML/MIN
--- NOTE | 2024-09-30 11:33 | DISCHARGE SUMMARY ---
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 GI was consulted in am with plans for scope once alcohol withdrawal resolves. However, patient left AMA despite explaining risks associated with leaving AMA. 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
[2024-10-01] MEDS ORDERED: LORazepam 2 mg/ml vial IV PRN (23:15)
[2024-10-01] MEDS ORDERED: LORazepam 1 MG tablet PO PRN (23:15)
[2024-10-03] MEDS ORDERED: thiamine 100mg tablet PO SCH (08:00)
[2024-10-03] MEDS ORDERED: LORazepam 1 MG tablet PO PRN (23:15)
[2024-10-03] MEDS ORDERED: LORazepam 2 mg/ml vial IV PRN (23:15)
[2024-10-04] MEDS ORDERED: folic acid 1mg tablet PO SCH (08:00)
== END 2024-09-30 12:28 | disposition left against medical advice (07) | DRG 377 ==
LOC: ER 16:22 → ED HOLD 23:11 → PCU 3S 09-30 04:20
PROVIDERS: ADMIT Internal Medicine Critical Care Medicine; ATTEND Nurse Practitioner Family
PROC: BW211ZZ Computerized Tomography (CT Scan) of Abdomen and Pelvis using Low Osmolar Contrast (ICD-10-PCS; 2024-09-29)
PROC: B4201ZZ Computerized Tomography (CT Scan) of Abdominal Aorta using Low Osmolar Contrast (ICD-10-PCS; principal; 2024-09-30)
PROC: B4241ZZ Computerized Tomography (CT Scan) of Superior Mesenteric Artery using Low Osmolar Contrast (ICD-10-PCS; 2024-09-30)
PROC: B4281ZZ Computerized Tomography (CT Scan) of Bilateral Renal Arteries using Low Osmolar Contrast (ICD-10-PCS; 2024-09-30)
PROC: B42C1ZZ Computerized Tomography (CT Scan) of Pelvic Arteries using Low Osmolar Contrast (ICD-10-PCS; 2024-09-30)
PROC: B42H1ZZ Computerized Tomography (CT Scan) of Bilateral Lower Extremity Arteries using Low Osmolar Contrast (ICD-10-PCS; 2024-09-30)
PROC: B4211ZZ Computerized Tomography (CT Scan) of Celiac Artery using Low Osmolar Contrast (ICD-10-PCS; 2024-09-30)
DX: K29.01 Acute gastritis with bleeding (principal); G92.8 Other toxic encephalopathy; N17.0 Acute kidney failure with tubular necrosis; E51.2 Wernicke's encephalopathy; E87.21 Acute metabolic acidosis; E87.1 Hypo-osmolality and hyponatremia; F10.139 Alcohol abuse with withdrawal, unspecified; E87.6 Hypokalemia; F10.129 Alcohol abuse with intoxication, unspecified; Z53.29 Procedure and treatment not carried out because of patient's decision for other reasons; Y90.5 Blood alcohol level of 100-119 mg/100 ml; Z79.899 Other long term (current) drug therapy
CPT/HCPCS: 36415; 36600; 71045; 74174; 74177; 80048; 80053; 80061; 80076; 80305; 80320; 81001; 81025; 82150; 82550; 82803; 83036; 83605; 83690; 83735; 83874; 83880; 84100; 84484; 85018; 85025; 85045; 85610; 85730; 86885; 86900; 86901; 87040; 87081; 93005; 96361; 96365; 96367; 96368; 96375; 99291; A6258; G0378; J0696; J1171; J1200; J2060; J2270; J2405; J2470; J2543; J2765; J3411; J3480; J3490; J7030; J7040; J7042; J7070; J7120; Q9967